=== PATIENT | male | born 1940 | race Caucasian/White ===

== ENCOUNTER 2023-07-16 11:03 | Emergency (ER) | payer OTHER, SELFPAY ==
[2023-07-16] VITALS (18 sets, daily range): BP systolic 140–171; BP diastolic 71–102; PULSE 58–76; RESP 14; TEMP 36.6; O2SAT 96–100; BMI 25.1
--- NOTE | 2023-07-16 11:41 | CRLHL7_ITS ---
For Patients: As a result of the Century Cures Act, medical imaging exams and procedure reports are released immediately into your electronic medical record. You may view this report before your referring provider. If you have questions, please contact your health care provider. INDICATION: Fall. Hit back of head. TECHNIQUE: Multiple axial images were obtained through the brain without contrast. Sagittal and coronal re-formatted images were obtained. COMPARISON: 01/01/2019. FINDINGS: The ventricles and sulci are within was for patient`s age. There is no mass effect or midline shift. There is no intracranial hemorrhage. There is decreased attenuation in the periventricular white matter consistent with small vessel ischemic disease. There is no skull fracture. IMPRESSION: No acute intracranial abnormality. Findings consistent with small vessel ischemic disease. Please note that all CT scans at this facility use dose modulation, iterative reconstruction, and/or weight-based dosing when appropriate to reduce radiation dose to as low as reasonably achievable. Dictated by Ayaan Gunn MD @ 07/16/2023 12:14:25 PM (Electronically Signed)
--- NOTE | 2023-07-16 12:08 | ED.NURSE ---
after CT offered to help pt to the bed, pt refused wanted to stay in the wheelchair. call light within reach, call light education provided.
--- NOTE | 2023-07-16 12:16 | ED.HEATRA ---
HPI - Head Injury General Date Seen: 07/16/23 Chief complaint: Head Injury/Pain Stated complaint: Fall this morning, cut on head Time Seen by Provider: 07/16/23 11:43 Source: patient and RN notes reviewed Mode of arrival: ambulatory Limitations: no limitations History of Present Illness HPI Narrative: Patient is an 83-year-old male that arrives with family with concern of a head injury. He was attempting to stand, felt like his feet legs went numb, felt lightheaded and fell backwards hitting his head. There was no loss of consciousness. He has felt some increasing neck pain since the time of the injury. He has a history of falls. He describes periods of lightheadedness, periods where his legs will just feel numb and like they were going to give out on him. This has been going on for reported the years per patient as well as family. He is on Coumadin, had his INR checked this past Tuesday I believe his stated it was 2.6. He is not felt ill with anything, no cough or cold symptoms. No increased weakness from baseline. Nothing else was injured. His states he hit his head hard. Nursing staff did appropriately initiate an emergent head CT in this patient to fell and hit his head and is on anticoagulants with Coumadin. Back of his head reportedly hit the corner of the door. No loss of consciousness. Nursing staff found tetanus to be up-to-date on 10/21/2022. Review of Systems Status of ROS: Reports: 6 or more systems reviewed and unremarkable except as noted in History and below [facility] Social History Smoking Status: Unknown if ever smoked How often do you have a drink containing alcohol: never AUDIT-C Alcohol total score: 0 Non-prescribed substance use: denies use Exam Const: Vital Signs, click to edit/add: Vital Signs - 24 hr 07/16/23 11:38 07/16/23 12:07 07/16/23 12:08 Temperature 97.8 F Pulse Rate 59 L 63 Pulse Rate [Pulse Oximeter] 63 Respiratory Rate 14 Blood Pressure 165/71 H Blood Pressure [Ri ght Upper Arm] 160/73 H Pulse Oximetry 97 100 99 Oxygen Delivery Me thod Room Air 07/16/23 12:15 07/16/23 12:30 07/16/23 12:33 Temperature Pulse Rate 58 L 68 65 Pulse Rate [Pulse Oximeter] Respiratory Rate Blood Pressure 157/81 H Blood Pressure [Ri ght Upper Arm] Pulse Oximetry 99 98 99 Oxygen Delivery Me thod 07/16/23 12:45 07/16/23 13:00 07/16/23 13:01 Temperature Pulse Rate 71 67 68 Pulse Rate [Pulse Oximeter] Respiratory Rate Blood Pressure 171/102 H Blood Pressure [Ri ght Upper Arm] Pulse Oximetry 96 96 97 Oxygen Delivery Me thod 07/16/23 13:15 07/16/23 13:30 07/16/23 13:32 Temperature Pulse Rate 63 70 71 Pulse Rate [Pulse Oximeter] Respiratory Rate Blood Pressure 150/84 H Blood Pressure [Ri ght Upper Arm] Pulse Oximetry 99 100 96 Oxygen Delivery Me thod 07/16/23 13:33 07/16/23 13:45 07/16/23 14:00 Temperature Pulse Rate 76 64 61 Pulse Rate [Pulse Oximeter] Respiratory Rate Blood Pressure Blood Pressure [Ri ght Upper Arm] Pulse Oximetry 97 98 99 Oxygen Delivery Me thod 07/16/23 14:02 07/16/23 14:03 07/16/23 14:15 Temperature Pulse Rate 69 70 68 Pulse Rate [Pulse Oximeter] Respiratory Rate Blood Pressure 140/73 H Blood Pressure [Ri ght Upper Arm] Pulse Oximetry 98 99 99 Oxygen Delivery Me thod Very pleasant 83-year-old gentleman sitting in wheelchair, is alert, interactive, no apparent distress. Speaking complete sentences, very pleasant and conversive gentleman. He has a linear about 1 cm vertically situated laceration center of back of his head. Initially this was not bleeding but as I examine it, does start bleeding a bit again. There is no surrounding erythema. No evidence of any developing hematoma or swelling around the area. He has no midline tenderness of his neck or his back, does have some kyphosis. No paraspinous tenderness he does states there is some achiness that is general in his neck, cannot really reproduce any palpable area. There is no neck masses. Lungs are clear, good air entry, no wheezing or crackles, no tachypnea. CV regular rate and rhythm no murmur, normal S1-S2. Abdomen is soft. Moving upper extremities, lower extremities, nonfocal exam. Documenting provider has reviewed patient's vital signs: yes Course Course ED Course: Will address his scalp laceration now, head CT had already been done and Radiology had already read this, was able to inform them that there was no acute intracranial pathology. Did review that I do think we should do some neck imaging with his complaint of neck pain now. He has no neurologic change, think he is splinting his own neck fine. Will obtain cervical spine CT images without contrast. They are in agreement with this. Nothing else is injured. Do not feel that we need any imaging of anything else at this time but he will let us know if he starting to have other complaints. Reevaluation(s) Time of Reevaluation #1: 14:14 Reevaluation #1: Reviewed with patient and his that the cervical imaging is not showing any acute traumatic change. He does have a lot of degenerative change. May want to try little heat to his neck with the underlying arthritis. May have some increased soreness from the fall from the arthritis. Vital Signs Vital signs: Initial Vital Signs Temperature 97.8 F 07/16/23 11:38 Temperature Source Temporal Artery Scan 07/16/23 11:38 Pulse Rate 63 07/16/23 11:38 Pulse Rhythm Regular 07/16/23 11:38 Respiratory Rate 14 07/16/23 11:38 Blood Pressure 160/73 H 07/16/23 11:38 Blood Pressure Mean 102 07/16/23 11:38 Blood Pressure Position Sitting 07/16/23 11:38 Pulse Oximetry 97 07/16/23 11:38 Oxygen Delivery Method Room Air 07/16/23 11:38 Vital Signs Temperature 97.8 F 07/16/23 11:38 Pulse Rate 63 07/16/23 11:38 Respiratory Rate 14 07/16/23 11:38 Blood Pressure 160/73 H 07/16/23 11:38 Pulse Oximetry 97 07/16/23 11:38 Oxygen Delivery Method Room Air 07/16/23 11:38 Temperature 97.8 F 07/16/23 11:38 Pulse Rate 68 07/16/23 14:15 Respiratory Rate 14 07/16/23 11:38 Blood Pressure 140/73 H 07/16/23 14:02 Pulse Oximetry 99 07/16/23 14:15 Oxygen Delivery Method Room Air 07/16/23 11:38 MDM - Head Injury Imaging Data CT scan - head: Attestation: I have reviewed the pertinent imaging results. Radiologist's impression: Patient: BELÉN SÁNCHEZ Facility:?[facility] Patient ID:?[id number] Site Patient ID:?[id number]. Site :?[id number] Study:?CT Head W/O-07/16/2023 12:01:30 PM Ordering Physician:Lalita Eubanks Final Report: INDICATION: Fall. Hit back of head. TECHNIQUE: Multiple axial images were obtained through the brain without contrast. Sagittal and coronal re-formatted images were obtained. COMPARISON: 01/01/2019. FINDINGS: The ventricles and sulci are within was for patient`s age. There is no mass effect or midline shift. There is no intracranial hemorrhage. There is decreased attenuation in the periventricular white matter consistent with small vessel ischemic disease. There is no skull fracture. IMPRESSION: No acute intracranial abnormality. Findings consistent with small vessel ischemic disease. Please note that all CT scans at this facility use dose modulation, iterative reconstruction, and/or weight-based dosing when appropriate to reduce radiation dose to as low as reasonably achievable. Dictated by Ayaan Gunn MD @ 07/16/2023 12:14:25 PM (Electronic Signature) CT cervical spine: Attestation: I have reviewed the pertinent imaging results. Radiologist's impression: Patient: BELÉN SÁNCHEZ Facility:?[facility] Patient ID:?[id number] Site Patient ID:?[id number]. Site :?[id number] Study:?CT Spine Cervical -07/16/2023 1:20:05 PM Ordering Physician:?Troy Eubanks Final Report: INDICATION: Fall. Pain. TECHNIQUE: Multiple axial images were obtained from the skullbase to the upper thoracic spine without contrast. Sagittal and coronal re-formatted images were obtained. COMPARISON: 01/01/2019. FINDINGS: There is no acute fracture. There is stable 0.2 cm anterolisthesis of C2 on C3. There is marked degenerative disc disease at C3-4, C4-5 and C5-6 levels. 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 There is mild degenerative disc disease at C2-3. There are degenerative facet changes at multiple levels in the cervical spine most pronounced on the right side. There degenerative changes between the anterior arch of C1 and the dens of C2, unchanged. There is no prevertebral soft tissue swelling. There are atherosclerotic calcifications. IMPRESSION: No acute bone abnormality. Degenerative changes. Please note that all CT scans at this facility use dose modulation, iterative reconstruction, and/or weight-based dosing when appropriate to reduce radiation dose to as low as reasonably achievable. Dictated by Ayaan Gunn MD @ 07/16/2023 1:44:22 PM (Electronic Signature) Discharge Plan Discharge Clinical Impression: Fall, Laceration of scalp, Cervical strain, acute Patient Disposition: Home, Self-Care Condition: Stable Instructions: Cervical Strain (ED), Laceration (ED) Additional Instructions: Need to schedule a clinic appointment for this Tuesday of this upcoming week, sutures need to be assessed for removal. May shower but be extremely careful to not disrupt these sutures with washing your hair or combing your hair. If there is concern about the wound becoming infected, please seek re-evaluation. Can use Tylenol per bottle directions for discomfort. If your neck is feeling more painful or achy, can try a a heating pad. 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 Activity Level: Activity as Tolerated Follow Up/Referrals: Tyson Quiros MD [Primary Care Provider] - Stand Alone Forms: [facility] Info Instructions Procedures Laceration Laceration 1: Pre procedure diagnosis: Posterior scalp laceration Post procedure diagnosis: Same Site marking: not applicable Name of person performing procedure: Cha Simmons Site: scalp Size (cm): 1 Description: linear Depth: simple, single layer Local Anesthetic: lidocaine 1% and with epi Amount of anesthesia used (mL): 3 Pre-repair: wound explored, irrigated extensively and deep structures intact Skin layer closed with: other (Prolene) Size (cm): 4-0 Number of sutures: 3 Technique: simple, interrupted Estimated blood loss (if any): less than 5mls Conclusion: patient tolerated procedure
--- NOTE | 2023-07-16 12:48 | CRLHL7_ITS ---
For Patients: As a result of the Cures Act, medical imaging exams and procedure reports are released immediately into your electronic medical record. You may view this report before your referring provider. If you have questions, please contact your health care provider. INDICATION: Fall. Pain. TECHNIQUE: Multiple axial images were obtained from the skullbase to the upper thoracic spine without contrast. Sagittal and coronal re-formatted images were obtained. COMPARISON: 01/01/2019. FINDINGS: There is no acute fracture. There is stable 0.2 cm anterolisthesis of C2 on C3. There is marked degenerative disc disease at C3-4, C4-5 and C5-6 levels. 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 There is mild degenerative disc disease at C2-3. There are degenerative facet changes at multiple levels in the cervical spine most pronounced on the right side. There degenerative changes between the anterior arch of C1 and the dens of C2, unchanged. There is no prevertebral soft tissue swelling. There are atherosclerotic calcifications. IMPRESSION: No acute bone abnormality. Degenerative changes. Please note that all CT scans at this facility use dose modulation, iterative reconstruction, and/or weight-based dosing when appropriate to reduce radiation dose to as low as reasonably achievable. Dictated by Ayaan Gunn MD @ 07/16/2023 1:44:22 PM (Electronically Signed)
== END 2023-07-16 14:37 | disposition home or self-care (01) ==
PROVIDERS: Emergency Provider Family Medicine; PCP Family Medicine
DX: S01.01XA Laceration without foreign body of scalp, initial encounter (principal); S16.1XXA Strain of muscle, fascia and tendon at neck level, initial encounter; W18.30XA Fall on same level, unspecified, initial encounter
CPT/HCPCS: 12002; 70450; 72125; 99283; 99284

== ENCOUNTER 2023-08-16 11:03 | Emergency (ER) | payer OTHER, SELFPAY ==
[2023-08-16] VITALS (18 sets, daily range): BP systolic 144–177; BP diastolic 75–91; PULSE 54–76; RESP 18; TEMP 36.7; O2SAT 95–99; BMI 25.4
--- NOTE | 2023-08-16 11:58 | CRLHL7_ITS ---
For Patients: As a result of the Century Cures Act, medical imaging exams and procedure reports are released immediately into your electronic medical record. You may view this report before your referring provider. If you have questions, please contact your health care provider. Indication: Chest pain Comparison: None available. Technique: PA and lateral views of the chest Findings: There is hyperinflation and chronic interstitial change with minimal basilar atelectasis and parenchymal scar. The cardiac silhouette is mildly prominent with minimal aortic tortuosity. The bony thorax is grossly intact. Impression: Mild chronic interstitial change without dense consolidation. Dictated by Keaton Saldaña MD @ 08/16/2023 1:42:38 PM (Electronically Signed)
--- OUTSIDE RECORDS SUMMARY | 2023-08-16 12:06 | XMS_ITS | Continuity of Care Document ---
Author Name Unknown Organization [facility] Address [address] [place] [address] Phone Care Team Providers Care Document Clerk Name Role Phone Ashley THOMAS, Amininfa Unavailable Unavailable Allergies, Adverse Reactions, Alerts Substance Reaction Status Criticality Heparin Analogues Active No Informa tion CLOPIDOGREL BISULFATE Active No Inf ormation metoprolol Active No Information atenolol Active No Information Penicillins Active No Information Medications Medication Instructions Dosage Effective Dates (start - stop) Status Comments ZESTRIL (unknown strength) Not Available - Active GEMFIBROZIL (unknown strength) Not Available - Active HYDROCHLOROTHIAZIDE (unknown strength) Not Available - Active DILTIAZEM 24HR ER (unknown strength) Not Available - Active SIMVASTATIN (unknown strength) Not Available - Active COUMADIN (unknown strength) Not Available - Active STANBACK ANALGESIC (unknown strength) Not Available - Active IRON (unknown strength) Not Available - Ac tive VITAMIN D3 (unknown strength) Not Available - Active NITROMIST (unknown strength) Not Available - Active Procedures Procedure Date Office/Outpatient Visit,Est, Low 2012 X-Ray Exam Lower Spine 2-3 Views 2012 Postop Followup Visit X-Ray Exam Lower Spine 2-3 Views 2011 Lumbar Spine Fusion, Posterolateral Spine Fusion, Each Add'Lvertebra 2011 Remove Lumbar Spine Lamina, 1 Seg Remove Added Spine Lamina, 1 Seg 2011 Insert Spine Seg Fix, Post, 3-6 Seg Allograft, Spine Surg, Morselized Autograft, Spine Surgery, Local 012 Pa Assist Lumbar Spine Fusion, Posterola teral Pa Assist Spine Fusion, Each Add'Lverteb ra Pa Assist Remove Lumbar Spine Lamina, 1 Seg Pa Assist Remove Added Spine Lamina, 1 S eg Pa Assist Insert Spine Seg Fix, Post, 3- 6 Seg Office/Outpatient Visit,New, [facility] 2011 X-Ray Exam Lwr Spine, Min 4 Views Advance Directives Directive Yes / No Effective Date File Name No Information Encounters Encounter Description Practice Location Reason(s) For Visit Diagnoses Date Provider Providers Copied on Encounter [facility], [address], [place], [place], [id number], [place] tel:[phone] [facility] No Information 2-201 5 Mehbod Amir. [facility] [place], [address] [place] [address], [id number] , [place]. tel:[phone] Office/Outpat ient Visit,Est, Low Z [facility], [address] [address], [place], [address], [place] tel:[phone] [employer] [facility] [employer] No Information 3 Mehbod Amir. [facility] [place], [address] [place] [address], [place], [place], [id number] , [place]. tel:[phone] Referring Provider: Tyson Quiros, [address], [address] . tel:[phone] Z [facility] [place], [address] [address], [place], [address], [place] tel:[phone] [employer] [facility] No Information 2 Mehbod Amir. [facility] [place], [address] [place] [address], [id number] , [place]. tel:[phone] Referring Provider: Tyson Quiros, [address], [address] . tel:[phone] Z [facility] [place], [address] [place] [address], [place], [place], [facility], tel:[phone] [facility] No Information 2 Mehbod Amir. [facility], [address] [place] [address] [address], [place], [place], [id number] , . tel:[phone] Referring Provider: Tyson Quiros, [address], [address] . tel:[phone] Office/Outpat ient Visit,New, Mod Z [facility], [address] [place] [address], [place], [place], [facility], [place] tel:[phone] [facility] [place] AsthmaHypert ension, UnspecifiedH ypercholeste rolemiaArthr opathy/Arthr itisCAD, Unspecified 2 Mehbod Amir. [facility], [address] [place] [address], [place], [place], [id number] , [place]. tel:[phone] Referring Provider: Tyson Quiros, [address], [address] . tel:[phone] Family History Family Member Type Diagnosis Age At Onset Problem (finding) Problem (finding) Problem (finding) Problem (finding) Payers Payer name Insurance type Covered green party ID Authoriza tion(s) No Information Social History Type Description Quantity Date Captured Comments Sex Male Smoking Status No Information Chief Complaint And Reason For Visit No Information Reason For Referral Reason For Referral No Information History Of Present Illness Encounter Date Complaint History Of Prese nt Illness No Information Functional Status Date Functional Assessmen t No Information Instructions Date Instruction Additional Infor mation No Information Assessments Type Assessment Date No Information Patient Care Teams Name Effective Dates (start - stop) Status Members No Information
--- OUTSIDE RECORDS SUMMARY | 2023-08-16 12:06 | XMS_ITS | Continuity of Care Document ---
Author Name Unknown Organization [facility] Address [address] [place] [address] Phone Care Team Providers Care Clothing Room Supervisor Name Role Phone Ashley THOMAS, Amininfa Unavailable [...] Fix, Post, 3- 6 Seg Office/Outpatient Visit,New, [facility] 2011 X-Ray Exam Lwr Spine, Min 4 Views Advance Directives Directive Yes / No Effective Date File Name No Information Encounters Encounter Description Practice Location Reason(s) For Visit Diagnoses Date Provider Providers Copied on Encounter [facility], [address], [place], [place], [id number], [place] tel:[phone] [facility] No Information 2-201 5 Mehbod Amir. [facility] [place], [address] [place] [address], [id number] , [place]. tel:[phone] Office/Outpat ient Visit,Est, Low Z [facility], [address] [address], [place], [address], [place] tel:[phone] [employer] [facility] [employer] No Information 3 Mehbod Amir. [facility] [place], [address] [place] [address], [place], [place], [id number] , [place]. tel:[phone] Referring Provider: Tyson Quiros, [address], [address] . tel:[phone] Z [facility] [place], [address] [address], [place], [address], [place] tel:[phone] [employer] [facility] [place] No Information 2 Mehbod Amir. [facility] [place], [address] [place] [address], [id number] , [place]. tel:[phone] Referring Provider: Tyson Quiros, [address], [address] . tel:[phone] Z [facility] [place], [address] [place] [address], [place], [place], [facility], tel:[phone] [facility] No Information 2 Mehbod Amir. [facility], [address] [place] [address] [address], [place], [place], [id number] , . tel:[phone] Referring Provider: Tyson Quiros, [address], [address] . tel:[phone] Office/Outpat ient Visit,New, Mod Z [facility], [address] [place] [address], [place], [place], [facility], [place] tel:[phone] [facility] [place] AsthmaHypert ension, UnspecifiedH ypercholeste rolemiaArthr opathy/Arthr itisCAD, Unspecified 2 Mehbod Amir. [facility], [address] [place] [address], [place], [place], [id number] , [place]. tel:[phone] Referring Provider: Tyson Quiros, [address], [address] . tel:[phone] Family History Family Member Type Diagnosis Age At Onset Problem (finding) Problem (finding) Problem (finding) Problem (finding) Payers Payer name Insurance type Covered alliance party ID Authoriza tion(s) No Information Social [...]
[2023-08-16 12:09] LABS: Eosinophils Absolute Auto 0.05 K/uL (0.00-0.50); Eosinophils Percent Auto 0.9 % (0.0-7.0); Hematocrit 36.6 % (37.0-53.0); Hemoglobin* 12.5 gm/dL (13.5-17.5); Immature Granulocytes Abs Auto 0.01 K/uL (0.00-0.30); Immature Granulocytes Pct Auto 0.2 %; Lymphocytes Percent Auto 12.9 % (20-44); Mean Corpuscular HGB Conc 34 gm/dL (32-36); Mean Corpuscular Hemoglobin 32 pg (26-34); Mean Corpuscular Volume 94 fL (80-100); Monocytes Percent Auto 9.2 % (0.0-11.0); Neutrophils Percent Auto 76.8 % (42.0-72.0); Platelet Count* 167 K/uL (140-440); RDW Coefficient of Variation % 13.2 % (11.5-15.5); Red Blood Count 3.91 m/uL (4.30-5.90); White Blood Count* 5.41 K/uL (4.50-11.00)
[2023-08-16 12:10] LABS: Slide Review Reflex No
[2023-08-16 12:12] LABS: Troponin, Point-of-Care* 0.02 ng/ml (0.01-0.04)
[2023-08-16 12:21] LABS: Albumin* 4.4 g/dL (3.3-5.0); Chloride* 107 mmol/L (96-114)
[2023-08-16 12:22] LABS: Potassium* 4.2 mmol/L (3.6-5.1); Sodium* 138 mmol/L (135-149)
[2023-08-16 12:24] LABS: Anion Gap 6 mEq/L (7-15); Aspartate Amino Transferase* 33 U/L (12-35); Bilirubin Total* 0.6 mg/dL (0.1-1.5); Carbon Dioxide* 25 mmol/L (20-32); Est. Creatinine Clearance* 57.52; Estimated Glomerular Filt Rate 74 ml/min; Total Protein* 7.2 g/dL (6.0-8.3)
[2023-08-16 12:25] LABS: Alanine Aminotransferase* 26 U/L (4-50); Alkaline Phosphatase* 110 U/L (40-150); Blood Urea Nitrogen* 25 mg/dL (7-30); Calcium* 9.2 mg/dL (8.4-10.6); Glucose* 82 mg/dL (60-115); INR 2.88 (0.91-1.10); Prothrombin Time 32.3 Seconds
[2023-08-16 12:27] LABS: D Dimer Quantitative* 0.62 ug/ml (0.00-0.50)
[2023-08-16 12:28] LABS: C Reactive Protein* < 0.5 mg/dL (0.5-1.0)
--- NOTE | 2023-08-16 12:42 | ED.GENADULT ---
HPI - General Adult General Date Seen: 08/16/23 Chief complaint: Chest Pain Stated complaint: chest pain Time Seen by Provider: 08/16/23 11:48 Source: patient Mode of arrival: ambulatory Limitations: no limitations History of Present Illness HPI narrative: Patient is an 83-year-old male who says that since last night he has been having some chest pains. He describes them as sharp, in the left chest radiating through to the back. It seems as if they go away within a few minutes. He has taken nitroglycerin and says that this helps, but it also seems that they go away in a brief amount of time without treatment too, so it is unclear whether the nitroglycerin is actually helping. Does have a history of coronary artery disease with a stent placed 13 years ago. At that time he was having persistent chest pain, different than what he is having today. He does feel that he has been short of breath and notes that it hurts to take a deep breath. 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 He has not had fever cough, no unusual leg pain or swelling. No exertional chest pain, all of these episodes have happened when he was sitting still. He does not smoke or drink, here today with his . Does not take a daily aspirin secondary to his Coumadin use. Related Data Allergies Allergy/AdvReac Type Severity Reaction Status Date / Time atenolol Allergy Verified 08/16/23 11:24 clopidogrel [From Plavix] Allergy Verified 08/16/23 11:24 heparin Allergy Verified 08/16/23 11:24 metoprolol Allergy Verified 08/16/23 11:24 oxycodone Allergy Verified 08/16/23 11:24 Penicillins Allergy Verified 08/16/23 11:24 vancomycin Allergy Verified 08/16/23 11:24 Review of Systems Status of ROS: Reports: 10 or more systems reviewed and unremarkable except as noted in History and below PFSH PFS Social History Smoking Status: Former smoker Do you use any of these nicotine containing products: None Second hand tobacco smoke exposure: No How often do you have a drink containing alcohol: never How often do you have six or more drinks on one occasion: Never AUDIT-C Alcohol total score: 0 Non-prescribed substance use: denies use service: No Exam Narrative: Exam Narrative: Vital signs as noted above. In general, an alert, well-appearing patient. Looks comfortable, breathing easily. Head: Normocephalic, atraumatic. Eyes: Pupils are equal reactive. Extraocular movements are full. Conjunctivae are normal. ENT: Mucous membranes are moist. Neck: Supple without lymphadenopathy. Heart: Regular rate and rhythm. No murmur or rub. Lungs: Clear bilaterally. No increased work of breathing, crackles or wheezes. Abdomen: Soft and nontender. No organomegaly. Extremities: Well perfused. No edema. No calf tenderness. Pulses intact. Neurologic: Patient is alert and oriented to person and place. Speech is fluent. Face is symmetric. Moves all extremities equally. Affect: Normal. Skin: Warm and dry. Well perfused. Const: Vital Signs, click to edit/add: Vital Signs - 24 hr 08/16/23 11:19 08/16/23 11:24 08/16/23 12:18 Temperature 98.1 F Pulse Rate 70 Pulse Rate [Pulse Oximeter] 54 L Respiratory Rate 18 Blood Pressure Blood Pressure [Ri ght Upper Arm] 177/89 H Pulse Oximetry 96 99 97 Oxygen Delivery Me thod Room Air 08/16/23 12:27 08/16/23 12:30 08/16/23 12:32 Temperature Pulse Rate 64 68 Pulse Rate [Pulse Oximeter] Respiratory Rate Blood Pressure 144/75 H Blood Pressure [Ri ght Upper Arm] Pulse Oximetry 95 97 95 Oxygen Delivery Me thod 08/16/23 12:45 08/16/23 13:00 08/16/23 13:15 Temperature Pulse Rate 66 69 76 Pulse Rate [Pulse Oximeter] Respiratory Rate Blood Pressure Blood Pressure [Ri ght Upper Arm] Pulse Oximetry 95 96 99 Oxygen Delivery Me thod 08/16/23 13:30 08/16/23 13:32 08/16/23 13:45 Temperature Pulse Rate 68 69 60 Pulse Rate [Pulse Oximeter] Respiratory Rate Blood Pressure 150/80 H Blood Pressure [Ri ght Upper Arm] Pulse Oximetry 95 99 96 Oxygen Delivery Me thod 08/16/23 14:00 08/16/23 14:02 08/16/23 14:03 Temperature Pulse Rate 72 67 65 Pulse Rate [Pulse Oximeter] Respiratory Rate Blood Pressure 159/91 H Blood Pressure [Ri ght Upper Arm] Pulse Oximetry 96 98 99 Oxygen Delivery Me thod 08/16/23 14:15 08/16/23 14:30 08/16/23 14:32 Temperature Pulse Rate 69 67 67 Pulse Rate [Pulse Oximeter] Respiratory Rate Blood Pressure 156/79 H Blood Pressure [Ri ght Upper Arm] Pulse Oximetry 96 95 95 Oxygen Delivery Me thod Course Course ED Course: EKG on arrival shows what is likely a sinus rhythm or ectopic atrial rhythm. No acute ST segment changes. Normal T-waves with the exception of a single inverted T-wave in lead 3. Initial point of care troponin is 0.02. Other labs are unremarkable, his white blood cell count is normal at 5.4, mild anemia with a hemoglobin of 12.5, normal platelets. INR is therapeutic at 2.88. D-dimer is normal for age at 0.62, given and coagulation my suspicion for PE is low. Metabolic panel is within normal limits as are LFTs. CRP is less than 0.5. Chest x-ray by my review was negative for infiltrate, pneumothorax, effusion or other acute abnormalities. Diagnostic considerations include acute coronary syndrome or angina, chest wall pain, pneumonia, pulmonary embolism, dissection among others. Overall, my suspicion for serious causes relatively low given the relatively fleeting nature of his pain and reproduction with breathing. His initial troponin was 0.02, a 2 hour troponin was 0.01. I repeated his EKG as well and this remains unremarkable without evidence of ischemic changes. His D-dimer is normal for age at point 6 2, he is therapeutic on his Coumadin with an INR of 2.88. He does say that his goal therapeutic range is 2-2 and half, so I have recommended that he call and touch base with Dr. Ge who manages his Coumadin to make sure that there are no modifications recommended based on that INR. Metabolic panel is unremarkable, LFTs are normal, CRP is normal. I recommended that he try taking some Tylenol for a couple of days, discussed that I cannot entirely rule out coronary artery disease in the ER today and I would have him follow-up as an outpatient to arrange for stress test. If at any time he has acute worsening, severe persistent symptoms, return to the emergency department. Otherwise, continue current medications and follow-up this week with primary care. Vital Signs Vital signs: Initial Vital Signs Pulse Oximetry 96 08/16/23 11:19 Vital Signs Pulse Oximetry 96 08/16/23 11:19 Temperature 98.1 F 08/16/23 11:24 Pulse Rate 67 08/16/23 14:32 Respiratory Rate 18 08/16/23 11:24 Blood Pressure 156/79 H 08/16/23 14:32 Pulse Oximetry 95 08/16/23 14:32 Oxygen Delivery Method Room Air 08/16/23 11:24 Medical Decision Making Lab Data Labs: Lab Results 08/16/23 08/16/23 08/16/23 Range/Units 11:50 11:58 13:50 WBC 5.41 (4.50-11.00) K/uL RBC 3.91 L (4.30-5.90) m/uL Hgb 12.5 L (13.5-17.5) gm/dL Hct 36.6 L (37.0-53.0) % MCV 94 (80-100) fL MCH 32 (26-34) pg MCHC 34 (32-36) gm/dL RDW Coeff of Tricia 13.2 (11.5-15.5) % Plt Count 167 (140-440) K/uL Neut % (Auto) 76.8 H (42.0-72.0) % Lymph % (Auto) 12.9 L (20-44) % Dewitt % (Auto) 9.2 (0.0-11.0) % Eos % (Auto) 0.9 (0.0-7.0) % Baso % (Auto) 0.0 (0.0-3.0) % Neut # (Auto) 4.20 (1.7-7.0) K/uL Lymph # (Auto) 0.70 L (0.90-2.90) K/uL Dewitt # (Auto) 0.50 (0.00-0.90) K/UL Eos # (Auto) 0.05 (0.00-0.50) K/uL Baso # (Auto) 0.00 (0.00-0.30) K/uL Abs Immat Gran (auto) 0.01 (0.00-0.30) K/uL Imm/Tot Granulo (auto) 0.2 % INR 2.88 H (0.91-1.10) D-Dimer Quant (PE/DVT) 0.62 H (0.00-0.50) ug/ml Sodium 138 (135-149) mmol/L Potassium 4.2 (3.6-5.1) mmol/L Chloride 107 (96-114) mmol/L Carbon Dioxide 25 (20-32) mmol/L Anion Gap 6 L (7-15) mEq/L BUN 25 (7-30) mg/dL Creatinine 1.0 (0.5-1.5) mg/dL Estimated Creat Clear 57.52 Estimated GFR 74 ml/min Glucose 82 (60-115) mg/dL Calcium 9.2 (8.4-10.6) mg/dL Total Bilirubin 0.6 (0.1-1.5) mg/dL Direct Bilirubin 0.0 (0.0-0.5) mg/dL AST 33 (12-35) U/L ALT 26 (4-50) U/L Alkaline Phosphatase 110 (40-150) U/L C-Reactive Protein < 0.5 L (0.5-1.0) mg/dL Total Protein 7.2 (6.0-8.3) g/dL Albumin 4.4 (3.3-5.0) g/dL SARS-CoV-2 (PCR) Negative SARS-CoV-2 (Negative) Influenza Type A (PCR) Negative PCR FLU A (Negative) Influenza Type B (PCR) Negative PCR FLU B (Negative) RSV (PCR) Negative PCR RSV (Negative) POC Troponin I 0.02 0.01 (0.01-0.04) ng/ml Discharge Plan Discharge Clinical Impression: Chest pain Patient Disposition: Home, Self-Care Condition: Stable Instructions: Chest Pain (DC) Additional Instructions: Your workup today does not show any evidence of a heart attack or other acute problem. I would recommend you follow-up with your primary doctor this week for recheck and to discuss additional testing in the form of a stress test. If you have severe persistent pain or other worsening symptoms return to the emergency department at any time. Follow Up/Referrals: Tyson Quiros MD [Primary Care Provider] - Stand Alone Forms: [employer] Info Instructions
[2023-08-16 12:53] LABS: PCR FLU A Negative PCR FLU A (Negative); PCR FLU B Negative PCR FLU B (Negative); PCR RSV Negative PCR RSV (Negative)
[2023-08-16 13:12] LABS: SARS PCR* Negative SARS-CoV-2 (Negative)
[2023-08-16 14:14] LABS: Troponin, Point-of-Care* 0.01 ng/ml (0.01-0.04)
== END 2023-08-16 14:51 | disposition home or self-care (01) ==
PROVIDERS: Emergency Provider Emergency Medicine; PCP Family Medicine
DX: R07.9 Chest pain, unspecified (principal)
CPT/HCPCS: 36415; 71046; 80048; 80076; 84484; 85025; 85379; 85610; 86140; 87631; 93005; 94761; 99284